=== PATIENT | female | born 1940 | race Caucasian/White ===

== ENCOUNTER 2022-01-04 11:44 | Emergency (ER) | payer MEDICARE ==
[2022-01-04] MEDS ORDERED: Sodium Chloride 0.9% 10 ML Syringe FLUSH PRN (11:55)
[2022-01-04 12:35] LABS: ANION GAP 15.1 mEq/L (7-13)
[2022-01-04] MEDS ORDERED: Iopamidol 755 Mg/ML 100 ML Bottle IVPUSH ONE (14:57)
[2022-01-04] MEDS ORDERED: Sodium Chloride 0.9% 1,000 ML IV ONE (14:57)
[2022-01-04] MEDS ORDERED: Potassium Chloride 10 MEQ Tab.ER PO ONE (14:59)
[2022-01-04] MEDS ORDERED: Mupirocin Oint 22 GM Tube TOP ONE (16:38)
[2022-01-04] MEDS ORDERED: Mupirocin Oint 22 GM Tube ONE (16:39)
[2022-01-04 17:25] VITALS: BP 132/70; PULSE 80
== END 2022-01-04 17:28 | disposition home or self-care (01) ==
LOC: DL.ED 11:44
DX: L03.115 Cellulitis of right lower limb (principal); E78.00 Pure hypercholesterolemia, unspecified; J44.9 Chronic obstructive pulmonary disease, unspecified; E66.9 Obesity, unspecified; Z68.28 Body mass index [BMI] 28.0-28.9, adult; Z86.73 Personal history of transient ischemic attack (TIA), and cerebral infarction without residual deficits; Z79.82 Long term (current) use of aspirin
CPT/HCPCS: 36415; 80053; 83605; 83880; 85025; 85379; 86140; 87040; 93971; 96360; 99284; A9270; J3490; J7030

== ENCOUNTER 2022-01-20 11:21 | Inpatient (IN) | payer MEDICARE, OTHER ==
[2022-01-20] MEDS ORDERED: Bisacodyl 5 MG Tab PO PRN (14:14)
[2022-01-20] MEDS ORDERED: Ondansetron 4 MG Tab.DIS PO PRN (14:14)
[2022-01-20] MEDS ORDERED: Albuterol 6.7 GM Inhaler INH PRN (14:18)
[2022-01-20] MEDS ORDERED: Nitroglycerin 0.4 MG Tab.SL SL PRN (14:18)
[2022-01-20] MEDS: Acetaminophen/HYDROcodone 325-5 MG Tab PO PRN ×2 (15:49→20:46)
[2022-01-20] MEDS: Formoterol/Mometasone 200-5 MCG 8.8 GM Inhaler IH SCH (20:45)
[2022-01-20] MEDS: Amoxicillin/Clavulanate K 875-125 MG Tab PO SCH (20:45)
[2022-01-20] MEDS: Heparin Sodium 5,000 Units/ML Vial SUBCUT SCH (20:46)
[2022-01-20] MEDS: Melatonin 3 MG Tab PO SCH (20:46)
[2022-01-21] MEDS: Acetaminophen/HYDROcodone 325-5 MG Tab PO PRN ×3 (04:48→21:27)
[2022-01-21] MEDS: Aspirin 325 MG Tab PO SCH (08:41)
[2022-01-21] MEDS: Amoxicillin/Clavulanate K 875-125 MG Tab PO SCH ×2 (08:41→21:27)
[2022-01-21] MEDS: Multivitamins with Iron/Calcium/Folic Acid/Minerals Tab PO SCH (08:42)
[2022-01-21] MEDS: Heparin Sodium 5,000 Units/ML Vial SUBCUT SCH ×2 (08:42→21:29)
[2022-01-21] MEDS: Furosemide 20 MG Tab PO SCH (08:42)
[2022-01-21] MEDS: Formoterol/Mometasone 200-5 MCG 8.8 GM Inhaler IH SCH ×2 (08:44→21:33)
[2022-01-21] MEDS: Melatonin 3 MG Tab PO SCH (21:29)
[2022-01-22] MEDS: Heparin Sodium 5,000 Units/ML Vial SUBCUT SCH ×2 (09:14→21:10)
[2022-01-22] MEDS: Docusate Sodium 100 MG Cap PO PRN ×2 (09:14→21:09)
[2022-01-22] MEDS: Furosemide 20 MG Tab PO SCH (09:14)
[2022-01-22] MEDS: Multivitamins with Iron/Calcium/Folic Acid/Minerals Tab PO SCH (09:14)
[2022-01-22] MEDS: Aspirin 325 MG Tab PO SCH (09:14)
[2022-01-22] MEDS: Formoterol/Mometasone 200-5 MCG 8.8 GM Inhaler IH SCH ×2 (09:15→21:09)
[2022-01-22] MEDS: Melatonin 3 MG Tab PO SCH (21:08)
[2022-01-23 07:39] VITALS: BP 126/59; PULSE 64
[2022-01-23] MEDS: Formoterol/Mometasone 200-5 MCG 8.8 GM Inhaler IH SCH (08:00)
[2022-01-23] MEDS: Furosemide 20 MG Tab PO SCH (08:00)
[2022-01-23] MEDS: Multivitamins with Iron/Calcium/Folic Acid/Minerals Tab PO SCH (08:00)
[2022-01-23] MEDS: Aspirin 325 MG Tab PO SCH (08:00)
[2022-01-23] MEDS: Heparin Sodium 5,000 Units/ML Vial SUBCUT SCH (08:00)
[2022-01-23] MEDS: Docusate Sodium 100 MG Cap PO PRN (08:00)
[2022-01-23] MEDS ORDERED: Formoterol/Mometasone 200-5 MCG 8.8 GM Inhaler IH SCH (10:43)
== END 2022-01-23 11:20 | disposition home or self-care (01) | DRG 605 ==
LOC: DL.MS 13:44
PROVIDERS: ADMIT Hospitalist; ATTEND Internal Medicine
DX: S81.801A Unspecified open wound, right lower leg, initial encounter (principal); I87.8 Other specified disorders of veins; H91.90 Unspecified hearing loss, unspecified ear; H54.7 Unspecified visual loss; E78.00 Pure hypercholesterolemia, unspecified; J44.9 Chronic obstructive pulmonary disease, unspecified; J45.909 Unspecified asthma, uncomplicated; M19.90 Unspecified osteoarthritis, unspecified site; F32.A Depression, unspecified; E66.9 Obesity, unspecified; K44.9 Diaphragmatic hernia without obstruction or gangrene; Z96.659 Presence of unspecified artificial knee joint; Z79.82 Long term (current) use of aspirin; Z79.899 Other long term (current) drug therapy; Z86.73 Personal history of transient ischemic attack (TIA), and cerebral infarction without residual deficits; Z90.49 Acquired absence of other specified parts of digestive tract; Z98.890 Other specified postprocedural states; Z68.31 Body mass index [BMI] 31.0-31.9, adult
CPT/HCPCS: 97116-GP; 97161-GP; 97165-GO; 97530-GO; 97535-GO; 99316; A9270-GY; J1644

== ENCOUNTER 2022-01-23 18:28 | Emergency (ER) | payer MEDICARE, OTHER | END 2022-01-23 18:55 | LOC: DL.ED 18:28 | DX: M79.606 Pain in leg, unspecified (principal); Z53.21 Procedure and treatment not carried out due to patient leaving prior to being seen by health care provider ==

== ENCOUNTER 2023-03-02 21:04 | Inpatient (IN) | payer MEDICARE, OTHER ==
[2023-03-02] MEDS: Sodium Chloride 0.9% 10 ML Syringe FLUSH PRN (21:24)
[2023-03-02 21:28] LABS: HEMOGLOBIN 15.6 g/dL (12.0-16.0); MEAN CORPUSCULAR HEMOGLOBIN 31.1 pg (27.0-34.0); MEAN CORPUSCULAR HGB CONC 35.5 g/dL (33.0-35.0); MEAN CORPUSCULAR VOLUME 87.8 fL (80-100); PLATELET COUNT,PLT 136 10^3/uL (150-450); RED BLOOD CELL COUNT 5.01 10^6/uL (4.2-5.4); WHITE BLOOD CELL COUNT,WBC 12.8 10^3/uL (5.0-10.0)
[2023-03-02 21:30] LABS: BASOPHILS PERCENT AUTO 0.2 % (0.0-1.0); MONOCYTES PERCENT AUTO 6.3 % (2-8); NEUTROPHILS PERCENT AUTO 85.6 % (42.2-75.2)
[2023-03-02 21:43] LABS: ALBUMIN 3.3 g/dL (3.4-5.0); ANION GAP 17.4 mEq/L (7-13); BILIRUBIN TOTAL 1.7 mg/dL (0.2-1.0); BUN/CREATININE RATIO 23.4 (No establ ref range); CALCIUM 8.5 mg/dL (8.5-10.1); CREATININE 1.07 mg/dL (0.55-1.02); EST CRCL DRUG DOSING (CG) 34.4 mL/min; MAGNESIUM 1.8 mg/dL (1.8-2.4); POTASSIUM,K 3.4 mmol/L (3.5-5.1); PROTEIN TOTAL,TP 7.8 g/dL (6.4-8.2)
[2023-03-02 21:44] LABS: A/G RATIO 0.73
[2023-03-02 21:48] LABS: LACTIC ACID 2.8 mmol/L (0.4-2.0)
[2023-03-02 21:50] LABS: LYMPHOCYTES % ATYPICAL MANUAL 2 %; LYMPHOCYTES PERCENT MAN 5 % (20-50); MONOCYTES PERCENT MAN 5 % (2-8); SEG NEUTROPHILS PERCENT MAN 88 % (42-75)
[2023-03-02] MEDS: Sodium Chloride 0.9% 1,000 ML IV SCH (22:00)
[2023-03-02] MEDS ORDERED: Cefepime 1 GM Vial IVPUSH ONE (23:05)
[2023-03-02] MEDS ORDERED: VANCOmycin 1.75 GM/350 ML 350 ML IV ONE (23:15)
[2023-03-02 23:33] LABS: APPEARANCE,URINE CLEAR (CLEAR); BILIRUBIN,URINE SMALL (NEGATIVE); COLOR,URINE DARK YELLOW (YELLOW); GLUCOSE,URINE NEGATIVE (NEGATIVE); KETONES,URINE 15 (NEGATIVE); LEUKOCYTE ESTERASE,URINE NEGATIVE (NEGATIVE); NITRITE,URINE NEGATIVE (NEGATIVE); OCCULT BLOOD,URINE LARGE (NEGATIVE); PROTEIN,URINE >=300 (NEGATIVE)
[2023-03-02 23:43] LABS: BACTERIA,URINE FEW /HPF (0-FEW/HPF); EPITHELIAL CELLS,URINE FEW /HPF (NOT SEEN); FINE GRANULAR CASTS,URINE RARE /LPF (NOT SEEN); RBC,URINE 0-5 /HPF (0-5); WBC,URINE 0-5 /HPF (0-5/HPF)
[2023-03-03] MEDS ORDERED: Zolpidem 5 MG Tab PO PRN (00:31)
[2023-03-03] MEDS ORDERED: Acetaminophen 325 MG Tab PO PRN (00:31)
[2023-03-03] MEDS ORDERED: Ondansetron 4 MG/2 ML SDV IVPUSH PRN (00:31)
[2023-03-03] MEDS ORDERED: Magnesium Hydroxide 400 MG/5 ML Susp 30 ML Cup PO PRN (00:31)
[2023-03-03] MEDS ORDERED: Bisacodyl 5 MG Tab PO PRN (00:31)
[2023-03-03] MEDS ORDERED: Albuterol/Ipratropium 3.0-0.5 MG/3 ML Neb Soln NEB PRN (00:31)
[2023-03-03] MEDS ORDERED: hydrALAZINE 20 MG/ML SDV IVPUSH PRN (00:35)
[2023-03-03] MEDS ORDERED: Metoprolol Tartrate 5 MG/5 ML SDV IVPUSH PRN (00:36)
[2023-03-03] MEDS ORDERED: Ziprasidone Mesylate 20 MG Vial IM PRN (00:37)
[2023-03-03] MEDS ORDERED: Melatonin 3 MG Tab PO PRN (00:40)
[2023-03-03] MEDS ORDERED: Piperacillin/Tazobactam 3.375 GM in Sodium Chloride 0.9% 100 ML IV SCH (00:45)
[2023-03-03] MEDS: HYDROmorphone 0.5 MG/0.5 ML Syringe IVPUSH PRN ×3 (02:05→21:42)
[2023-03-03] MEDS: Sodium Chloride 0.9% 1,000 ML IV SCH ×3 (03:22→19:28)
[2023-03-03] MEDS: Nystatin Topical Powder 30 GM Bottle TOP SCH ×3 (03:32→23:00)
[2023-03-03] MEDS: Piperacillin/Tazobactam 3.375 GM in Sodium Chloride 0.9% 100 ML IV SCH ×4 (03:43→21:15)
[2023-03-03] MEDS: Acetaminophen/oxyCODONE 325-5 MG Tab PO PRN (05:18)
[2023-03-03] MEDS: Pantoprazole 40 MG Tab.CR PO SCH (05:18)
[2023-03-03 07:20] LABS: A/G RATIO 0.74; ALBUMIN 2.5 g/dL (3.4-5.0); BILIRUBIN TOTAL 1.7 mg/dL (0.2-1.0); BUN/CREATININE RATIO 31.4 (No establ ref range); C-REACTIVE PROTEIN 4.2 mg/dL (0.0-0.9); CALCIUM 7.3 mg/dL (8.5-10.1); CREATININE 0.7 mg/dL (0.55-1.02); EST CRCL DRUG DOSING (CG) 52.58 mL/min; MAGNESIUM 1.7 mg/dL (1.8-2.4); PROTEIN TOTAL,TP 5.9 g/dL (6.4-8.2)
[2023-03-03 07:28] LABS: HEMATOCRIT 37.8 % (37.0-47.0); HEMOGLOBIN 13.1 g/dL (12.0-16.0); MEAN CORPUSCULAR HGB CONC 34.7 g/dL (33.0-35.0); MEAN CORPUSCULAR VOLUME 89.4 fL (80-100); PLATELET COUNT,PLT 108 10^3/uL (150-450); RED BLOOD CELL COUNT 4.23 10^6/uL (4.2-5.4)
[2023-03-03 07:31] LABS: BASOPHILS PERCENT AUTO 0.1 % (0.0-1.0); MONOCYTES PERCENT AUTO 8.3 % (2-8); NEUTROPHILS PERCENT AUTO 81.6 % (42.2-75.2)
[2023-03-03 07:53] LABS: LYMPHOCYTES PERCENT MAN 8 % (20-50); MONOCYTES PERCENT MAN 5 % (2-8); SEG NEUTROPHILS PERCENT MAN 87 % (42-75)
[2023-03-03] MEDS ORDERED: Magnesium Sulfate/Water 2 GM in Premix Bag 1 BAG IV ONE (08:07)
[2023-03-03] MEDS: Heparin Sodium 5,000 Units/ML Vial SUBCUT SCH ×2 (08:53→21:40)
[2023-03-03] MEDS: Saccharomyces Boulardii (Probiotic) 250 MG Cap PO SCH ×2 (08:53→21:40)
[2023-03-03] MEDS: Potassium Chloride 10 MEQ Tab.ER PO SCH ×2 (08:58→18:11)
[2023-03-03] MEDS: Melatonin 3 MG Tab PO PRN (21:40)
[2023-03-04] MEDS: Piperacillin/Tazobactam 3.375 GM in Sodium Chloride 0.9% 100 ML IV SCH ×4 (02:30→18:23)
[2023-03-04] MEDS: HYDROmorphone 0.5 MG/0.5 ML Syringe IVPUSH PRN (02:45)
[2023-03-04] MEDS: Pantoprazole 40 MG Tab.CR PO SCH (05:12)
[2023-03-04 05:58] LABS: HEMOGLOBIN 11.5 g/dL (12.0-16.0); MEAN CORPUSCULAR HEMOGLOBIN 31.3 pg (27.0-34.0); MEAN CORPUSCULAR HGB CONC 34.8 g/dL (33.0-35.0); MEAN CORPUSCULAR VOLUME 89.7 fL (80-100); PLATELET COUNT,PLT 86 10^3/uL (150-450); RED BLOOD CELL COUNT 3.68 10^6/uL (4.2-5.4); WHITE BLOOD CELL COUNT,WBC 10.3 10^3/uL (5.0-10.0)
[2023-03-04 06:00] LABS: BASOPHILS PERCENT AUTO 0.2 % (0.0-1.0); LYMPHOCYTES PERCENT AUTO 12.3 % (20.5-50.1); MONOCYTES PERCENT AUTO 6.5 % (2-8)
[2023-03-04 06:13] LABS: LYMPHOCYTES % ATYPICAL MANUAL 2 %; LYMPHOCYTES PERCENT MAN 14 % (20-50); MONOCYTES PERCENT MAN 6 % (2-8); SEG NEUTROPHILS PERCENT MAN 78 % (42-75)
[2023-03-04 06:25] LABS: ALBUMIN 2.1 g/dL (3.4-5.0); ANION GAP 12.4 mEq/L (7-13); BILIRUBIN TOTAL 1.3 mg/dL (0.2-1.0); BUN/CREATININE RATIO 28.2 (No establ ref range); C-REACTIVE PROTEIN 7.7 mg/dL (0.0-0.9); CALCIUM 7.5 mg/dL (8.5-10.1); CREATININE 0.71 mg/dL (0.55-1.02); EST CRCL DRUG DOSING (CG) 51.84 mL/min; MAGNESIUM 1.9 mg/dL (1.8-2.4); POTASSIUM,K 4.4 mmol/L (3.5-5.1); PROTEIN TOTAL,TP 5.4 g/dL (6.4-8.2)
[2023-03-04 06:31] LABS: A/G RATIO 0.64
[2023-03-04] MEDS: Acetaminophen/oxyCODONE 325-5 MG Tab PO PRN ×2 (08:10→16:02)
[2023-03-04] MEDS: Cholecalciferol (Vitamin D3) 25 MCG Tab PO SCH (09:47)
[2023-03-04] MEDS: Saccharomyces Boulardii (Probiotic) 250 MG Cap PO SCH ×2 (09:48→20:44)
[2023-03-04] MEDS: Heparin Sodium 5,000 Units/ML Vial SUBCUT SCH ×2 (09:48→20:44)
[2023-03-04] MEDS ORDERED: Furosemide 40 MG Tab PO ONE (12:00)
[2023-03-04] MEDS: Nystatin Topical Powder 30 GM Bottle TOP SCH ×2 (13:29→20:45)
[2023-03-04] MEDS ORDERED: Ziprasidone HCl 20 MG Cap PO PRN (18:00)
[2023-03-04] MEDS: Melatonin 3 MG Tab PO PRN (20:44)
[2023-03-05] MEDS: Piperacillin/Tazobactam 3.375 GM in Sodium Chloride 0.9% 100 ML IV SCH ×5 (00:03→23:32)
[2023-03-05] MEDS: Nystatin Topical Powder 30 GM Bottle TOP SCH ×3 (00:31→21:14)
[2023-03-05] MEDS: Acetaminophen/oxyCODONE 325-5 MG Tab PO PRN (00:39)
[2023-03-05] MEDS: HYDROmorphone 0.5 MG/0.5 ML Syringe IVPUSH PRN ×2 (00:48→21:45)
[2023-03-05 06:37] LABS: BASOPHILS PERCENT AUTO 0.1 % (0.0-1.0); EOSINOPHILS PERCENT AUTO 0.4 % (1.0-3.0); HEMATOCRIT 36.7 % (37.0-47.0); HEMOGLOBIN 12.7 g/dL (12.0-16.0); LYMPHOCYTES PERCENT AUTO 19.2 % (20.5-50.1); MEAN CORPUSCULAR HEMOGLOBIN 30.8 pg (27.0-34.0); MEAN CORPUSCULAR HGB CONC 34.6 g/dL (33.0-35.0); MEAN CORPUSCULAR VOLUME 89.1 fL (80-100); MONOCYTES PERCENT AUTO 7.1 % (2-8); NEUTROPHILS PERCENT AUTO 73.2 % (42.2-75.2); PLATELET COUNT,PLT 114 10^3/uL (150-450); RED BLOOD CELL COUNT 4.12 10^6/uL (4.2-5.4); WHITE BLOOD CELL COUNT,WBC 7.2 10^3/uL (5.0-10.0)
[2023-03-05] MEDS: Pantoprazole 40 MG Tab.CR PO SCH (06:45)
[2023-03-05 06:55] LABS: ALBUMIN 2.3 g/dL (3.4-5.0); ANION GAP 11.5 mEq/L (7-13); BILIRUBIN TOTAL 1.3 mg/dL (0.2-1.0); BUN/CREATININE RATIO 21.3 (No establ ref range); C-REACTIVE PROTEIN 5.9 mg/dL (0.0-0.9); CALCIUM 8.1 mg/dL (8.5-10.1); CREATININE 0.75 mg/dL (0.55-1.02); EST CRCL DRUG DOSING (CG) 49.08 mL/min; MAGNESIUM 1.6 mg/dL (1.8-2.4); POTASSIUM,K 3.5 mmol/L (3.5-5.1); PROTEIN TOTAL,TP 6.1 g/dL (6.4-8.2)
[2023-03-05 06:57] LABS: A/G RATIO 0.61
[2023-03-05] MEDS: Heparin Sodium 5,000 Units/ML Vial SUBCUT SCH ×2 (09:21→21:11)
[2023-03-05] MEDS: Saccharomyces Boulardii (Probiotic) 250 MG Cap PO SCH ×2 (09:25→21:07)
[2023-03-05] MEDS: Cholecalciferol (Vitamin D3) 25 MCG Tab PO SCH (09:25)
[2023-03-05] MEDS: Sodium Chloride 0.9% 10 ML Syringe FLUSH PRN ×2 (21:44→23:32)
[2023-03-06] MEDS: Nystatin Topical Powder 30 GM Bottle TOP SCH ×2 (00:13→10:25)
[2023-03-06] MEDS: Sodium Chloride 0.9% 10 ML Syringe FLUSH PRN (05:42)
[2023-03-06] MEDS: HYDROmorphone 0.5 MG/0.5 ML Syringe IVPUSH PRN ×2 (05:48→12:39)
[2023-03-06] MEDS: Piperacillin/Tazobactam 3.375 GM in Sodium Chloride 0.9% 100 ML IV SCH ×3 (05:50→18:28)
[2023-03-06] MEDS: Pantoprazole 40 MG Tab.CR PO SCH (06:02)
[2023-03-06 06:20] LABS: EOSINOPHILS PERCENT AUTO 0.8 % (1.0-3.0); HEMATOCRIT 33.5 % (37.0-47.0); HEMOGLOBIN 11.6 g/dL (12.0-16.0); LYMPHOCYTES PERCENT AUTO 15.7 % (20.5-50.1); MEAN CORPUSCULAR HEMOGLOBIN 30.9 pg (27.0-34.0); MEAN CORPUSCULAR HGB CONC 34.6 g/dL (33.0-35.0); MEAN CORPUSCULAR VOLUME 89.1 fL (80-100); MONOCYTES PERCENT AUTO 7.5 % (2-8); PLATELET COUNT,PLT 133 10^3/uL (150-450); RED BLOOD CELL COUNT 3.76 10^6/uL (4.2-5.4); WHITE BLOOD CELL COUNT,WBC 5.2 10^3/uL (5.0-10.0)
[2023-03-06 06:42] LABS: ALBUMIN 2.1 g/dL (3.4-5.0); ANION GAP 11.3 mEq/L (7-13); BUN/CREATININE RATIO 24.2 (No establ ref range); C-REACTIVE PROTEIN 3.3 mg/dL (0.0-0.9); CALCIUM 7.9 mg/dL (8.5-10.1); CREATININE 0.62 mg/dL (0.55-1.02); EST CRCL DRUG DOSING (CG) 59.37 mL/min; MAGNESIUM 1.6 mg/dL (1.8-2.4); POTASSIUM,K 3.3 mmol/L (3.5-5.1); PROTEIN TOTAL,TP 5.3 g/dL (6.4-8.2)
[2023-03-06 06:48] LABS: A/G RATIO 0.66
[2023-03-06] MEDS: Cholecalciferol (Vitamin D3) 25 MCG Tab PO SCH (09:50)
[2023-03-06] MEDS: Saccharomyces Boulardii (Probiotic) 250 MG Cap PO SCH (09:50)
[2023-03-06] MEDS: Heparin Sodium 5,000 Units/ML Vial SUBCUT SCH (10:07)
[2023-03-06] MEDS ORDERED: HYDROmorphone 0.5 MG/0.5 ML Syringe IVPUSH PRN (15:01)
[2023-03-06 16:46] VITALS: BP 141/76; PULSE 64
[2023-03-06] MEDS ORDERED: Atropine 1% Ophth Soln 5 ML Bottle SL PRN (19:36)
[2023-03-06] MEDS ORDERED: Scopolamine 1.5 MG Transdermal Patch TOP ONE (19:36)
[2023-03-06] MEDS: Morphine 2 MG/ML SYRINGE IVPUSH PRN (20:05)
[2023-03-06] MEDS: LORazepam 2 MG/ML SDV IVPUSH PRN (21:37)
[2023-03-07] MEDS: Morphine 2 MG/ML SYRINGE IVPUSH PRN ×6 (00:12→22:09)
[2023-03-07] MEDS: LORazepam 2 MG/ML SDV IVPUSH PRN ×3 (07:58→16:05)
[2023-03-07] MEDS: Sodium Chloride 0.9% 10 ML Syringe FLUSH PRN ×4 (09:59→22:09)
[2023-03-08] MEDS: LORazepam 2 MG/ML SDV IVPUSH PRN ×4 (00:36→23:00)
[2023-03-08] MEDS: Sodium Chloride 0.9% 10 ML Syringe FLUSH PRN ×3 (00:37→06:29)
[2023-03-08] MEDS: Morphine 2 MG/ML SYRINGE IVPUSH PRN ×5 (02:17→20:00)
[2023-03-08] MEDS: Morphine 4 MG/ML Syringe IVPUSH PRN ×2 (21:30→23:15)
[2023-03-09] MEDS: Morphine 4 MG/ML Syringe IVPUSH PRN ×2 (01:30→03:30)
[2023-03-09] MEDS: LORazepam 2 MG/ML SDV IVPUSH PRN (02:00)
== END 2023-03-09 06:00 | disposition expired | DRG 871 ==
LOC: DL.ED 21:04 → DL.MS 03-03 00:31 → UNDOADMIN 03-03 00:32 → DL.MS 03-03 00:32
PROVIDERS: ADMIT Hospitalist; ATTEND Internal Medicine
PROC: 3E03329 Introduction of Other Anti-infective into Peripheral Vein, Percutaneous Approach (ICD-10-PCS; principal; 2023-03-03)
PROC: 0T9B70Z Drainage of Bladder with Drainage Device, Via Natural or Artificial Opening (ICD-10-PCS; 2023-03-03)
DX: A41.9 Sepsis, unspecified organism (principal); G93.41 Metabolic encephalopathy; L89.151 Pressure ulcer of sacral region, stage 1; L89.893 Pressure ulcer of other site, stage 3; L24.5 Irritant contact dermatitis due to other chemical products; E87.20 Acidosis, unspecified; M25.562 Pain in left knee; R29.6 Repeated falls; L03.116 Cellulitis of left lower limb; L97.829 Non-pressure chronic ulcer of other part of left lower leg with unspecified severity; N17.9 Acute kidney failure, unspecified; E87.1 Hypo-osmolality and hyponatremia; E46 Unspecified protein-calorie malnutrition; Z86.718 Personal history of other venous thrombosis and embolism; J44.9 Chronic obstructive pulmonary disease, unspecified; E78.00 Pure hypercholesterolemia, unspecified; Z51.5 Encounter for palliative care; M19.90 Unspecified osteoarthritis, unspecified site; F32.A Depression, unspecified; E66.9 Obesity, unspecified; I87.8 Other specified disorders of veins; I45.10 Unspecified right bundle-branch block; B37.2 Candidiasis of skin and nail; L30.4 Erythema intertrigo; L89.152 Pressure ulcer of sacral region, stage 2; I10 Essential (primary) hypertension; I25.10 Atherosclerotic heart disease of native coronary artery without angina pectoris; M81.0 Age-related osteoporosis without current pathological fracture; Z96.653 Presence of artificial knee joint, bilateral; G47.30 Sleep apnea, unspecified; D72.829 Elevated white blood cell count, unspecified; D69.6 Thrombocytopenia, unspecified; E87.6 Hypokalemia; R73.9 Hyperglycemia, unspecified; E80.6 Other disorders of bilirubin metabolism; E88.09 Other disorders of plasma-protein metabolism, not elsewhere classified; E86.0 Dehydration; R62.7 Adult failure to thrive; H54.7 Unspecified visual loss; H91.90 Unspecified hearing loss, unspecified ear; E83.42 Hypomagnesemia; R31.9 Hematuria, unspecified; L97.529 Non-pressure chronic ulcer of other part of left foot with unspecified severity; L97.519 Non-pressure chronic ulcer of other part of right foot with unspecified severity; Z66 Do not resuscitate; L24.9 Irritant contact dermatitis, unspecified cause; Z68.32 Body mass index [BMI] 32.0-32.9, adult; Z79.82 Long term (current) use of aspirin; Z79.899 Other long term (current) drug therapy; Z90.49 Acquired absence of other specified parts of digestive tract; Z98.890 Other specified postprocedural states; Z86.73 Personal history of transient ischemic attack (TIA), and cerebral infarction without residual deficits; W19.XXXA Unspecified fall, initial encounter; Y92.009 Unspecified place in unspecified non-institutional (private) residence as the place of occurrence of the external cause
CPT/HCPCS: 36415; 51702; 73560-LT; 80053; 80202; 81001; 82306; 83605; 83735; 85025; 85651; 86140; 87040; 93010; 96361; 96365; 96375; 97161-GP; 97167-GO; 99223; 99233; 99238; 99285; 99285-25; A9270-GY; J0692; J1170; J1644; J2060; J2270; J2543; J3370; J3475; J3490; J7030; J7050